=== PATIENT | female | born 1950 | race Two or more races ===

== ENCOUNTER 2018-07-26 07:51 | Outpatient (CLI) | payer OTHER | END 2018-07-26 09:39 | disposition home or self-care (01) | LOC: SONOGRAMA 07:51 | DX: E04.1 Nontoxic single thyroid nodule (principal) ==

== ENCOUNTER 2023-01-07 09:14 | Outpatient (CLI) | payer OTHER | END 2023-01-07 09:16 | disposition home or self-care (01) | LOC: SONOGRAMA 09:14 | PROVIDERS: ATTEND Pathology Anatomic Pathology & Clinical Pathology | DX: D34 Benign neoplasm of thyroid gland (principal); E04.9 Nontoxic goiter, unspecified; D44.0 Neoplasm of uncertain behavior of thyroid gland ==